=== PATIENT | female | born 1995 | race Caucasian/White ===

== ENCOUNTER 2018-07-18 20:32 | Emergency (ER) | payer OTHER ==
[~2018-07-18] VITALS: Ht 170.2 cm; Wt 88.8 kg
[~2018-07-18 20:32] MED LIST: HYDR-1666; IBUP-727
[2018-07-18 21:06] VITALS: Ht 170.2 cm; Wt 88.8 kg
--- NOTE | 2018-07-19 00:56 | ERD ---
ER Documentation Chief Complaint Chief Complaint heavy object fell on left forehead x 1 hour ago, c/o pain. no ko. no vomit HPI This is a 23-year-old female who was accompanied by her mother here in emergency department with complaints of headache, neck pain. Stated that she was at work an hour ago, when a heavy metal door fell to her head. Patient was immediately informed by her superiors to come here to the emergency department for an e valuation because she has dizziness. Vision also stated that she is not sure if she has loss of consciousness. Complains of neck pain during range of motion of the neck. LMP: Last month. A0. Denies loss of consciousness, dizziness, neck pain, neck stiffness, throat pain, difficulty swallowing, difficulty breathing lying flat, shoulder pain, chest pain, back pain, abdominal pain, nausea, vomiting, constipation, diarrhea, urinary symptoms, or possibility being , loss of bowel and bladder control, trauma, injury, falls, difficulty walking due to pain, numbness or tingling sensation, calf pain, recent travel, recent major surgery in the last 3 weeks, calf pain, recent long travel, recent exposure to any illness, recent antibiotic use in the last 3 months, fever, chills, seizures. Past medical history: Surgical history: Social: Denies smoking, use of alcoholic beverages, use of illegal drugs. ROS All systems reviewed and are negative except as per history of present illness. Medications Home Meds Active Scripts Cyclobenzaprine Hcl* (Cyclobenzaprine Hcl*) 10 Mg Tablet, 10 MG PO TID PRN for MUSCLE SPASMS, #15 TAB Prov:JULIO LAZARO F 07/19/18 Ibuprofen* (Motrin*) 800 Mg Tab, 800 MG PO Q6H PRN for PAIN AND OR ELEVATED TEMP, #30 TAB Prov:HERMANILAKATHRYNKLAR F 07/19/18 Reported Medications Ibuprofen (Motrin) 600 Mg Tablet 07/18/10 Hydrocodone Bit/Acetaminophen (Vicodin 5/500 Tablet) 1 Tab Tablet 07/18/10 Allergies Allergies: Coded Allergies: No Known Drug Allergies (Verified Allergy, Mild, 07/18/10) PMhx/Soc History of Surgery: No Anesthesia Reaction: No Hx Neurological Disorder: No Hx Respiratory Disorders: No Hx Cardiac Disorders: No Hx Psychiatric Problems: No Hx Miscellaneous Medical Probl: No Hx Alcohol Use: No Hx Substance Use: No Hx Tobacco Use: No Physical Exam Vitals Physical Exam Const: No acute distress Head: Normocephalic. Scalp is intact. Eyes: Normal Conjunctiva. No discoloration. ENT: Normal External Ears, Nose and Mouth. Bilateral ears: No ear laceration. No mastoid tenderness. TMs not erythematous. No hearing loss. Nose: Midline without deformity. No septal hematoma. Lips/throat: No lip laceration. No tongue laceration. No signs of tooth avulsions. Uvula is midline and nondisplaced. Tonsils are +1 bilaterally without redness without exudates or tolerating secretions. Patent airway. Speaks full and clear sentences. Bilateral jaw: Good and full range of motion. No tenderness. No discoloration. Neck: Full range of motion. No meningismus. No neck swelling. C- spine: Midline with no swelling/deformity/bulging but has pain to range of motion. Resp: Clear to auscultation bilaterally. Symmetrical chest. Cardio: Regular rate and rhythm, no murmurs Abd: Soft, non tender, non distended. Normal bowel sounds Skin: No petechiae or rashes Back: No midline or flank tenderness. T-spine/L-spine are midline with good and full range of motion and is no swelling/deformity/bulging/point of tenderness. Ext: No cyanosis, or edema. Bilateral upper and lower extremities are unremarkable. Able to bear weight on left lower extremity. Able to bear weight on right lower extremity. No neurovascular deficit. Ambulatory with steady gait. Neur: Awake and alert. Romberg test is negative. No neurological deficits. Psych: Normal Mood and Affect Results 24 hrs Laboratory Tests Test 07/19/18 01:10 POC Beta HCG, Qualitative NEGATIVE Current Medications Medications Dose Sig/Anabel Start Time Status Last (Trade) Ordered Route PRN Stop Time Admin Dose Reason Admin Ketorolac 30 mg ONCE STAT 07/19/18 DC 07/19/18 Tromethamine IM 05:04 05:10 (Toradol) 07/19/18 05:05 Procedures/MDM Diagnostic tests: POC urine : Negative. CT of the brain: No evidence of acute intracranial pathology. The brain is normal in appearance. X-ray of the C-spine: Reversal of cervical lordosis which may be secondary to spasm or positioning. Treatment: Toradol IM. Re-evaluation: Denies headache, neck pain. Denies dizziness. No changes in her vision. No neurovascular deficit. Romberg test negative. No neurovascular No neurological deficits. Ambulatory with steady gait. Differential diagnosis I have low suspicion for subdural hematoma, epidural hematoma, skull fracture, LeFort, septal hematoma, C-spine fracture, C-spine subluxation. Final diagnosis: Concussion. Neck strain. Prescription: Motrin. Flexeril. Follow-up with PCP in the next 24-48 hours. Come back here in the emergency department for any new symptoms or any worsening symptoms. All questions and concerns were answered. Patient and family members verbalized understanding and agreed with plan of care. Hemodynamically stable on discharge. Departure Diagnosis: Primary Impression: Concussion Additional Impression: Neck muscle spasm Condition: Stable Additional Instructions: Follow-up with PCP in the next 24-48 hours. Come back here in the emergency dep artment for any new symptoms or any worsening symptoms. JULIO LAZARO Jul 19, 2018 00:56
[2018-07-19] MEDS ORDERED: KETOROLAC 30 MG INJ IM STA (05:04)
[2018-07-19] MEDS ORDERED: IBUP800T48 PO (05:05)
[2018-07-19] MEDS ORDERED: CYCL10TA7 PO (05:06)
[2018-07-19 05:18] VITALS: BP 124/62; PULSE 72; RESP 16
== END 2018-07-19 05:18 | disposition home or self-care (01) ==
LOC: FTE 20:32
DX: S06.0X0A Concussion without loss of consciousness, initial encounter (principal); S16.1XXA Strain of muscle, fascia and tendon at neck level, initial encounter; W20.8XXA Other cause of strike by thrown, projected or falling object, initial encounter; Y92.89 Other specified places as the place of occurrence of the external cause
CPT/HCPCS: 70450; 72040; 81025; 96372; 99285; J1885